=== PATIENT | male | born 1980 | race Caucasian/White ===

== ENCOUNTER 2024-05-18 10:23 | Emergency (ER) | payer OTHER ==
[~2024-05-18] VITALS: Ht 167.6 cm; Wt 93.0 kg
--- NOTE | 2024-05-18 10:50 | ED.PDOC ---
HPI Comments 44 y/o M, presents to the ED for CC of chest pain. Patient states, he has been experiencing substernal non-radiating chest pain since yesterday night (05/17/24). Patient relays, pain to be pressure like in nature. Patient complains of current 5/10 pain. Patient denies fever, chills, nausea, vomiting, dizziness, fatigue, weakness, or palpitations. No other symptoms or modifying factors present at this time. Chief Complaint: Chest Pain Time Seen by MD: 10:35 Reviewed Notes: Nurses Notes, Medications, Allergies Allergies: Coded Allergies: NO KNOWN ALLERGIES (Unverified , 05/18/24) Information Source: Patient Mode of Arrival: Ambulatory Severity: Moderate Timing: Hours Duration: Since onset Prehospital treatment: None Location: Substernal Radiation: No Radiation Quality: Pressure Onset: At Rest Cardiac Risk Factors: None PE Risk Factors: None History of: None Associated Signs and Symptoms: None Past Medical History Past Medical History (Other): chronic migraines Surgical History (Other): hand surgey Family History Family History: Unknown Social History Smoker: Non-Smoker Alcohol: Denies ETOH Use Drugs: Denies Drug Use Lives In: Home Constitutional: denies: chills, diaphoresis, fatigue, fever, malaise, sweats, weakness, others EENTM: denies: blurred vision, double vision, ear bleeding, ear discharge, ear drainage, ear pain, ear ringing, eye pain, eye redness, hearing loss, mouth pain, mouth swelling, nasal discharge, nose bleeding, nose congestion, nose pain, photophobia, tearing, throat pain, throat swelling, voice changes, others Respiratory: denies: cough, hemoptysis, orthopnea, SOB at rest, shortness of breath, SOB with excertion, stridor, wheezing, others Cardiovascular: reports: chest pain; denies: dizzy spells, diaphoresis, Dyspnea on exertion, edema, irregular heart beat, left arm pain, lightheadedness, palpitations, PND, syncope, others Gastrointestinal: denies: abdomen distended, abdominal pain, blood streaked bowels, constipated, diarrhea, dysphagia, difficulty swallowing, hematemesis, melena, nausea, poor appetite, poor fluid intake, rectal bleeding, rectal pain, vomiting, others Genitourinary: denies: burning, dysuria, flank pain, frequency, hematuria, incontinence, penile discharge, penile sore, pain, testicle pain, testicle swelling, urgency, others Neurological: denies: dizziness, fainting, headache, left sided numbness, left sided weakness, numbness, paresthesia, pre-existing deficit, right sided numbness, right sided weakness, seizure, speech problems, tingling, tremors, weakness, others Musculoskeletal: denies: back pain, gout, joint pain, joint swelling, muscle pain, muscle stiffness, neck pain, others Integumetry: denies: bruises, change in color, change in hair/nails, dryness, laceration, lesions, lumps, rash, wounds, others Allergic/Immunocompromised: denies: Difficulty Healing, Frequent Infections, Hives, Itching, others Hematologic/Lymphatic: denies: anemia, blood clots, easy bleeding, easy bruising, swollen glands, others Endocrine: denies: excessive hunger, excessive sweating, excessive thirst, excessive urination, flushing, intolerance to cold, intolerance to heat, unexplained weight gain, unexplained weight loss, others Psychiatric: denies: anxiety, bipolar disorder, depression, hopeless, panic disorder, schizophrenia, sleepless, suicidal, others All Other Systems: Reviewed and Negative Physical Exam General Appearance: Moderate Distress HEENT: Normal ENT Inspection, Pharynx Normal, TMs Normal Neck: Full Range of Motion, Non-Tender, Normal, Normal Inspection Respiratory: Chest Non-Tender, Lungs Clear, No Accessory Muscle Use, No Respiratory Distress, Normal Breath Sounds Cardiovascular: No Edema, No JVD, No Murmur, No Gallop, Tachycardia Breast Exam: Deferred Gastrointestinal: No Organomegaly, Non Tender, No Pulsatile Mass, Normal Bowel Sounds, Soft Genitalia: Deferred Pelvic: Deferred Rectal: Deferred Extremities: No calf tenderness, Normal capillary refill, Normal inspection, Normal range of motion, Non-tender, No pedal edema Musculoskeletal : Apperance: Normal Neurologic: Alert, 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 Was a procedure done?: No CP Differential Dx Differential Diagnosis: Anxiety / Panic Attack, Sinus Tachycardia Differential Diagnosis: HTN Essential, HTN Accelerated Differential Diagnosis: Chest Wall Pain, Costochondritis X-Ray, Labs, Meds, VS Vital Signs Date Time Temp Pulse Resp B/P (MAP) Pulse Ox O2 Delivery O2 Flow Rate FiO2 05/18/24 13:00 88 15 123/79 (94) 97 05/18/24 12:00 102 05/18/24 11:24 103 05/18/24 11:22 98.2 102 18 119/76 (90) 97 98.2 05/18/24 11:22 102 18 97 Nasal Cannula* 2 28 05/18/24 10:55 100 05/18/24 10:50 112 05/18/24 10:30 111 05/18/24 10:25 98.7 136 20 128/88 (101) 92 98.7 Lab Test 05/18/24 13:14 05/18/24 11:31 05/18/24 11:28 05/18/24 10:30 Range/Units Troponin I High Sensitivity Pending < 3 L < 3 L </=54 ng/L SARS-CoV-2 Antigen (Rapid) Negative NEGATIVE White Blood Count 10.1 4.4-10.8 10^3/uL Red Blood Count 5.81 4.5-5.90 10^6/uL Hemoglobin 17.2 13.5-17.5 g/dL Hematocrit 51.4 41.0-53.0 % Mean Corpuscular Volume 88.4 80.0-100.0 fL Mean Corpuscular Hemoglobin 29.6 28.0-32.0 pg Mean Corpuscular Hemoglobin Concent 33.5 32.0-36.0 g/dL Red Cell Distribution Width 13.4 11.8-14.3 % Platelet Count 243 140-450 10^3/uL Mean Platelet Volume 7.6 6.9-10.8 fL Neutrophils (%) (Auto) 89.5 H 37.0-80.0 % Lymphocytes (%) (Auto) 5.8 L 10.0-50.0 % Monocytes (%) (Auto) 3.5 0.0-12.0 % Eosinophils (%) (Auto) 0.8 0.0-7.0 % Basophils (%) (Auto) 0.4 0.0-2.0 % Neutrophils # (Auto) 9.0 H 1.6-8.6 10 ^3/uL Lymphocytes # (Auto) 0.6 0.4-5.4 10 ^3/uL Monocytes # (Auto) 0.3 0-1.3 10 ^3/uL Eosinophils # (Auto) 0.1 0-0.8 10 ^3/uL Basophils # (Auto) 0 0-0.2 10 ^3/uL Nucleated Red Blood Cells 0.0 % D-Dimer, Quantitative 0.72 H 0.0-0.49 mg/L FEU Current Medications Medications (Trade) Dose Ordered Sig/Mick Route Start Time Stop Time Status Last Admin Aspirin 162 mg ONCE ONCE PO 05/18/24 10:45 05/18/24 10:46 DC 05/18/24 11:08 [place] [id number] Ph: [phone] DIAGNOSTIC IMAGING Diagnostic Imaging Report : [id number] Signed PATIENT: SHANIQUE MATTA ACCT: [id number] UNIT: [id number] : 1980 LOC: ER ROOM / BED: / AGE / SEX: 44 / M ADM STATUS: REG ER SERVICE 1035 ORDERING PHYSICIAN: CHANELLE BRAR MD PROCEDURE(s): CXRP - CHEST PORTABLE REASON: CP ORDER NUMBER(s): [id number], ACCESSION NUMBER(s): [id number] EXAM: XY CHEST PORTABLE HISTORY: CP COMPARISON: None TECHNIQUE: Portable upright AP view of the chest was performed. FINDINGS: No pneumothorax, consolidative infiltrates, or pulmonary edema. The heart is not enlarged. There is mild thoracic dextroscoliosis. IMPRESSION: No acute intrathoracic process. ATED BY: ACE PENA MD DICTATED DATE/TIME: 05/18/24 1110 SIGNED BY: ACE PENA MD SIGNED DATE/TIME: 05/18/24 1110 CC: The repeat EKG shows sinus tach at 103 The CBC and chemistry panel are within normal limits The D-dimer is 0.72 The troponin level is negative x2 The patient was being admitted with a diagnosis of acute myocardial ischemia The patient understands and agrees with the management A cardiology consult will be obtained. Images Reviewed?: Images reviewed and evaluated by me Time of 1ST Reevaluation: 11:05 Reevaluation 1ST: Unchanged Patient Education/Counseling: Diagnosis, Treatment, Prognosis Family Education/Counseling: No Family Present Departure 1 Departure Time of Disposition: 13:46 Impression: Primary Impression: Acute myocardial ischemia Disposition: 09 ADMITTED INPATIENT Admit to: Tele Condition: Fair Critical Care Note Critical Care Time?: No Stability Stability form required: Yes Unstable for transfer: Telemetry monitoring (Telemetry monitoring required), ED Physician Assesment (Clinical assesment) Heart Score Heart Score: Heart Score Response (Comments) Value History Moderate Suspicious 1 EKG Repolarization Disturb 1 Age 45-64 1 Risk Factors >3 or Hx ASHD 2 Troponin Normal limit 0 Total 5 I personally scribed for CHANELLE BRAR MD ([email or web address]) on 05/18/24 at 10:50. Electronically submitted by Neda Sargent ([email or web address]). I personally scribed for CHANELLE BRAR MD ([email or web address]) on 05/18/24 at 11:34. Electronically submitted by Neda Sargent ([email or web address]). CHANELLE BRAR MD May 18, 2024 10:50
[2024-05-18 10:52] LABS: Basophils # (auto) 0 10 ^3/uL (0-0.2); Basophils % (auto) 0.4 % (0.0-2.0); Eosinophils # (auto) 0.1 10 ^3/uL (0-0.8); Eosinophils % (auto) 0.8 % (0.0-7.0); Hematocrit 51.4 % (41.0-53.0); Hemoglobin 17.2 g/dL (13.5-17.5); Lymphocytes # (auto) 0.6 10 ^3/uL (0.4-5.4); Lymphocytes % (auto) 5.8 % (10.0-50.0); Mean Corpuscular Hemoglobin 29.6 pg (28.0-32.0); Mean Corpuscular Hgb Conc. 33.5 g/dL (32.0-36.0); Mean Corpuscular Volume 88.4 fL (80.0-100.0); Monocytes # (auto) 0.3 10 ^3/uL (0-1.3); Monocytes % (auto) 3.5 % (0.0-12.0); Neutrophils % (auto) 89.5 % (37.0-80.0); Platelet Count (auto) 243 10^3/uL (140-450); Red Blood Cells 5.81 10^6/uL (4.5-5.90); Red Cell Distribution Width 13.4 % (11.8-14.3); White Blood Cell 10.1 10^3/uL (4.4-10.8)
[2024-05-18] MEDS: ASPirin 81 mg TAB PO ONE (11:08)
--- NOTE | 2024-05-18 11:13 | DVH ---
EXAM: XY CHEST PORTABLE HISTORY: CP COMPARISON: None TECHNIQUE: Portable upright AP view of the chest was performed. FINDINGS: No pneumothorax, consolidative infiltrates, or pulmonary edema. The heart is not enlarged. There is m ild thoracic dextroscoliosis. IMPRESSION: No acute intrathoracic process.
[2024-05-18 11:22] VITALS: PULSE 102; RESP 18; O2SAT 97
[2024-05-18 12:58] LABS: COVID19 ANTIGEN SOFIA FIA NEGATIVE (NEGATIVE)
[2024-05-18 19:30] VITALS: PULSE 96; RESP 13; O2SAT 97
[2024-05-18 20:55] LABS: Chloride 107 mmol/L (98-107); Potassium 4.2 mmol/L (3.5-5.1); Sodium 137 mmol/L (136-145)
[2024-05-18 20:56] LABS: Anion Gap 13 (5-15); Calcium 9.4 mg/dL (8.7-10.4)
[2024-05-18 21:01] LABS: BUN/Creatinine Ratio 15.2 (10.0-20.0); Blood Urea Nitrogen 15 mg/dL (9-23)
[2024-05-18 21:11] LABS: Carbon Dioxide 17 mmol/L (20-31); Glucose 120 mg/dL (74-106)
[2024-05-18 22:48] VITALS: BP 114/66; PULSE 89; RESP 17; TEMP 98.6; O2SAT 96
--- NOTE | 2024-05-19 00:32 | DVHINCON2 ---
Date of service: May 18, [address] Coe Reason for Consultation Chest Pain History of Present Illness Star Bergeron is a 44 y.o. male who presents with left sided sharp chest pain that has been intermittent for the past 24 hours prompting him to seek medical attention at [facility] where he was requested for admission for further evaluation and management. Patient asymptomatic at this time. He described some shortness of breath with the chest pain earlier that has since resolved. No other major events reported overnight. Patient denies complaints of fevers, chills, chest pain, palpitations, current cough, current shortness of breath, abdominal pain, nausea, vomiting, diarrhea, constipation, dysuria, lightheadedness, headaches, weakness, paresthesia or other complaints. Past Medical History Chronic intermittent migraines Allergies: Coded Allergies: NO KNOWN ALLERGIES (Unverified , 05/18/24) Vital Signs Vital Signs Date Time Temp Pulse Resp B/P (MAP) Pulse Ox O2 Delivery O2 Flow Rate FiO2 05/18/24 22:48 98.6 89 17 114/66 (82) 96 98.6 05/18/24 19:30 Room Air* 0 N/A Nasal Cannula* Physical Exam ER Provider exam reviewed Labs/Diagnostic Data Labs Test 05/18/24 13:14 05/18/24 11:28 05/18/24 10:30 Range/Units Troponin I High Sensitivity < 3 L </=54 ng/L SARS-CoV-2 Antigen (Rapid) Negative NEGATIVE White Blood Count 10.1 4.4-10.8 10^3/uL Red Blood Count 5.81 4.5-5.90 10^6/uL Hemoglobin 17.2 13.5-17.5 g/dL Hematocrit 51.4 41.0-53.0 % Mean Corpuscular Volume 88.4 80.0-100.0 fL Mean Corpuscular Hemoglobin 29.6 28.0-32.0 pg Mean Corpuscular Hemoglobin Concent 33.5 32.0-36.0 g/dL Red Cell Distribution Width 13.4 11.8-14.3 % Platelet Count 243 140-450 10^3/uL Mean Platelet Volume 7.6 6.9-10.8 fL Neutrophils (%) (Auto) 89.5 H 37.0-80.0 % Lymphocytes (%) (Auto) 5.8 L 10.0-50.0 % Monocytes (%) (Auto) 3.5 0.0-12.0 % Eosinophils (%) (Auto) 0.8 0.0-7.0 % Basophils (%) (Auto) 0.4 0.0-2.0 % Neutrophils # (Auto) 9.0 H 1.6-8.6 10 ^3/uL Lymphocytes # (Auto) 0.6 0.4-5.4 10 ^3/uL Monocytes # (Auto) 0.3 0-1.3 10 ^3/uL Eosinophils # (Auto) 0.1 0-0.8 10 ^3/uL Basophils # (Auto) 0 0-0.2 10 ^3/uL Nucleated Red Blood Cells 0.0 % D-Dimer, Quantitative 0.72 H 0.0-0.49 mg/L FEU Sodium Level 137 136-145 mmol/L Potassium Level 4.2 3.5-5.1 mmol/L Chloride Level 107 98-107 mmol/L Carbon Dioxide Level 17 L 20-31 mmol/L Anion Gap 13 5-15 Blood Urea Nitrogen 15 9-23 mg/dL Creatinine 0.99 0.700-1.30 mg/dL Glomerular Filtration Rate Calc 96 >90 mL/min BUN/Creatinine Ratio 15.2 10.0-20.0 Serum Glucose 120 H 74-106 mg/dL Calcium Level 9.4 8.7-10.4 mg/dL Plan/Recommendation This is a 44 y.o. male with listed past medical history who presents with chest pain requested for admission for further evaluation and management of: 1) ACS thus far ruled out. Patient would need a 2D Ech and Cardiology consultation. Given prior reported shortness of breath, chest pain and elevated d-dimer, CT angio of chest to rule out PE. 2) Chronic intermittent migraines; in remission. Pain management as needed [facility] patient request, [facility]MO [facility] All above discussed with the Patient who verbalized agreement and understanding of current status and plan. All questions were answered. This medical document was created using an electronic medical record system with [employer] system. Although this document has been carefully reviewed, there may still be some phonetic and typographical errors. These errors are purely typographical due to imperfections of the software programs, and do not reflect any compromise in the patient's medical care. Plan discussed with: Other ANGE DEGROOT MD May 19, 2024 00:32
--- NOTE | 2024-05-19 07:15 | ECG ---
[facility] Test Date: 2024-05-18 Test Time: 11:24:06 Pat Name: SHANIQUE WILLIS Department: ED Room: Gender: M Diesel Fitter Mechanic: [email or web address] : 1980 Requested By: CHANELLE BRAR Order Number: [id number] Reading MD: Tyrone Delgado Measurements Intervals [place] Rate: 103 P: 39 MO: 162 QRS: 99 QRSD: 82 T: 42 QT: 323 QTc: 423 Interpretive Statements Sinus tachycardia Probable left atrial enlargement Borderline right axis deviation RSR' in V1 or V2, probably normal variant ST elevation, consider inferior injury Electronically Signed On 05-19-2024 18:46:25 PDT by Tyrone Delgado Please click the below link to view image of tracing.
--- NOTE | 2024-05-19 10:27 | ECG ---
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
== END 2024-05-18 23:03 | disposition short-term general hospital (02) ==
LOC: ER 10:23
DX: I24.9 Acute ischemic heart disease, unspecified (principal); Z98.890 Other specified postprocedural states; Z20.822 Contact with and (suspected) exposure to COVID-19
CPT/HCPCS: 36415; 71045; 80048; 84484; 85025; 85379; 87426; 93005